=== PATIENT | female | born 1995 | race Caucasian/White ===

== ENCOUNTER 2019-11-18 21:26 | Emergency (ER) | payer BC ==
[~2019-11-18] VITALS: Ht 162.6 cm; Wt 68.0 kg
[2019-11-18 21:43] VITALS: BP_SYST 123
--- NOTE | 2019-11-18 21:45 | NUR ---
Patient triaged and placed in waiting room. VSS and patient appears in no acute distress at this time. Accompanied by self, awaiting available bed, and MD notified of need for MSE.
--- NOTE | 2019-11-18 22:48 | NUR ---
Patient to ER bed 03 to gown for evaluation. Side rails up.
--- NOTE | 2019-11-18 22:50 | NUR ---
Pt AAOx4 ambulated into ED c/o cough, 6/10 pain sore throat, subjective fever x today. Denies n/v/d. Skin pink dry and warm, breathing even and unlabored. No other injuries/complaints per pt/noted. Will continue to monitor.
--- NOTE | 2019-11-18 23:05 | NUR ---
ER Dr. Ford at bedside examining patient.
--- NOTE | 2019-11-18 23:14 | NUR ---
Patient given written and verbal discharge instructions and verbalizes understanding. ER MD Ford discussed with patient the results and treatment provided. Patient in stable condition. ID arm band removed. Rx of Motrin, Prednisone given. Patient educated on pain management and to follow up with PMD. Pain Scale 0. Opportunity for questions provided and answered. Medication side effect fact sheet provided.
[2019-11-18 23:15] VITALS: BP_SYST 123
== END 2019-11-18 23:15 | disposition home or self-care (01) ==
LOC: SED 21:26
DX: J02.9 Acute pharyngitis, unspecified (principal); R05 Cough
CPT/HCPCS: 99283